=== PATIENT | male | born 1965 | race Two or more races ===

== ENCOUNTER 2024-06-07 21:48 | Emergency (ER) | payer OTHER ==
[~2024-06-07] VITALS: Ht 175.3 cm; Wt 95.0 kg
[2024-06-07 22:11] VITALS: BP 142/101; PULSE 118; RESP 20; O2SAT 95
[2024-06-08] MEDS ORDERED: TETANUS-DIPTH-ACEL PERTUSSIS 0.5ML SYR Tdap IM ONE (01:30)
== END 2024-06-08 01:53 | disposition left against medical advice (07) ==
LOC: ER 21:48
DX: S61.412A Laceration without foreign body of left hand, initial encounter (principal); I10 Essential (primary) hypertension; E11.9 Type 2 diabetes mellitus without complications; W25.XXXA Contact with sharp glass, initial encounter; Y93.89 Activity, other specified; Y92.89 Other specified places as the place of occurrence of the external cause; Y99.8 Other external cause status
CPT/HCPCS: 12004